=== PATIENT | female | born 1985 | race Caucasian/White ===

== ENCOUNTER 2016-07-19 13:00 | Emergency (ER) | payer BC ==
[2016-07-19 13:35] LABS: CHLORIDE,CL 102 mmol/L (98-107); SODIUM,NA 137 mmol/L (136-145)
[2016-07-19 13:50] VITALS: BP 119/66
--- NOTE | 2016-07-19 13:53 | EDM.PDOC ---
ED HPI GENERAL MEDICAL PROBLEM - General Chief Complaint: Chest Pain Stated Complaint: SOB,chest heaviness Time Seen by Provider: 07/19/16 13:23 Source of Information: Reports: Patient History Limitations: Reports: No Limitations - History of Present Illness INITIAL COMMENTS - FREE TEXT/NARRATIVE: Pt has noticed increased heart rate this week. Intermittent events. Has been seen in ER and clinic. No obvious cause. Has been noted to have low potassium but this has resolved. No chest pain No fever No SOB No N/V/D Onset: Gradual Duration: Week(s):, Intermittent Location: Reports: Chest Quality: Reports: Ache Severity: Moderate Context: Reports: Other (unknown) - Related Data Allergies Allergy/AdvReac Type Severity Reaction Status Date / Time No Known Drug Allergies Allergy Cannot Verified 07/19/16 13:09 Remember Home Meds: Home Meds . [No Known Home Meds] 07/15/16 [History] Past Medical History RN PRIMARY CARE History: Reports: Spontaneous Hematologic History: Reports: Anemia - Infectious Disease History Infectious Disease History: Reports: Chicken Pox Social & Family History - Tobacco Use Smoking Status *Q: Current Some Day Smoker Years of Tobacco use: 1 Packs/Tins Daily: 0.1 Used Tobacco, but Quit: Yes Month Tobacco Last Used: june Second Hand Smoke Exposure: No - Caffeine Use Caffeine Use: Reports: Coffee, Soda, Tea - Alcohol Use Days Per Week of Alcohol Use: 1 Number of Drinks Per Day: 1 Total Drinks Per Week: 1 - Recreational Drug Use Recreational Drug Use: No ED ROS GENERAL - Review of Systems Review Of Systems: See Below Constitutional: Reports: No Symptoms HEENT: Reports: No Symptoms Respiratory: Reports: No Symptoms Cardiovascular: Reports: Other (tachycardia) GI/Abdominal: Reports: No Symptoms Musculoskeletal: Reports: No Symptoms ED EXAM, GENERAL - Physical Exam Exam: See Below Exam Limited By: No Limitations General Appearance: No Apparent Distress Throat/Mouth: Normal Oropharynx Neck: Normal Inspection, Supple Respiratory/Chest: Lungs Clear, Normal Breath Sounds, Chest Non-Tender Cardiovascular: Regular Rate, Rhythm GI/Abdominal: Soft Extremities: Normal Inspection Neurological: No Motor/Sensory Deficits EKG INTERPRETATION Rhythm: NSR Course - Vital Signs Last Recorded V/S: Last Vital Signs Temp 36.7 C 07/19/16 13:02 Pulse 90 07/19/16 13:35 Resp 20 07/19/16 13:35 BP 128/67 07/19/16 13:35 Pulse Ox 99 07/19/16 13:35 - Orders/Labs/Meds Orders: Active Orders 24 hr Category Date Time Status EKG Documentation Completion [RC] ASDIRECTED Care 07/19/16 13:14 Active Labs: Laboratory Tests 07/19/16 07/19/16 Range/Units 13:15 13:15 WBC 8.0 (4.0-10.2) K/uL RBC 4.26 (3.77-5.09) M/uL Hgb 14.1 (11.7-15.5) g/dL Hct 41.9 (34.0-46.0) % MCV 98.4 H (84.0-98.0) fL MCH 33.1 (28.2-33.3) pg MCHC 33.7 (31.7-36.0) g/dL RDW 13.3 (11.2-14.1) % Plt Count 232 (150-350) K/uL Neut % (Auto) 70.3 (45.0-80.0) % Lymph % (Auto) 21.9 (10.0-50.0) % Howell % (Auto) 6.6 (2.0-14.0) % Eos % (Auto) 0.6 (0.0-5.0) % Baso % (Auto) 0.6 (0.0-2.0) % Neut # (Auto) 5.61 (1.40-7.00) K/uL Lymph # (Auto) 1.75 (0.50-3.50) K/uL Howell # (Auto) 0.53 (0.00-1.00) K/uL Eos # (Auto) 0.05 (0.00-0.50) K/uL Baso # (Auto) 0.05 (0.00-0.20) K/uL Sodium 137 (136-145) mmol/L Potassium 3.9 (3.5-5.1) mmol/L Chloride 102 (98-107) mmol/L Carbon Dioxide 19.4 L (21.0-32.0) mmol/L BUN 9 (7-18) mg/dL Creatinine 0.54 (0.51-1.17) mg/dL Est Cr Clr Drug Dosing 153.67 mL/min Estimated GFR (MDRD) > 60 mL/min Glucose 90 (74-106) mg/dL Calcium 10.0 (8.5-10.1) mg/dL Total Bilirubin 0.5 (0.2-1.0) mg/dL AST 44 H (15-37) U/L ALT 77 (12-78) U/L Alkaline Phosphatase 72 (46-116) IU/L Troponin I 0.000 (0.000-0.056) ng/mL Total Protein 7.8 (6.4-8.2) g/dL Albumin 4.3 (3.4-5.0) g/dL - Re-Assessments/Exams Free Text/Narrative Re-Assessment/Exam: 07/19/16 13:51 Pt stable in ER D/W Pt and . Needs Holter monitor Departure - Departure Time of Disposition: 14:00 Disposition: Home, Self-Care 01 Clinical Impression: Tachycardia Forms: ED Department Discharge Additional Instructions: Decrease caffeine intake Follow up in clinic - My Orders Last 24 Hours: My Active Orders 07/19/16 13:14 EKG Documentation Completion [RC] ASDIRECTED - Assessment/Plan Last 24 Hours: My Active Orders 07/19/16 13:14 EKG Documentation Completion [RC] ASDIRECTED
== END 2016-07-19 14:14 | disposition home or self-care (01) ==
LOC: LL.ED 13:00
DX: R00.0 Tachycardia, unspecified (principal); D64.9 Anemia, unspecified; F17.210 Nicotine dependence, cigarettes, uncomplicated
CPT/HCPCS: 36415; 80053; 84484; 85025; 93005; 99285